=== PATIENT | male | born 1955 | race Caucasian/White ===

== ENCOUNTER 2020-06-14 16:47 | Emergency (ER) | payer MEDICARE, BC ==
[~2020-06-14] VITALS: Ht 190.5 cm; Wt 90.9 kg
[2020-06-14] MEDS ORDERED: cefTRIAXone FOR IV USE 1,000 MG in WATER (STERILE) FOR INJECTION 10 ML IV ONE (17:00)
[2020-06-14] MEDS ORDERED: NS IV 1000 ML 1,000 ML IV SCH (17:00)
[2020-06-14 17:23] LABS: HEMATOCRIT 38 % (40-54); HEMOGLOBIN 13.1 G/DL (13.3-17.7); MEAN CORPUSCULAR HEMOGLOBIN 31 PG (25-34); MEAN CORPUSCULAR HGB CONC 35 G/DL (32-36); MEAN CORPUSCULAR VOLUME 90 FL (80-99); MEAN PLATELET VOLUME 9.4 FL (7.4-10.4); NEUTROPHILS % (AUTO) 79 % (42-75); PLATELET COUNT 196 10^3/uL (130-400); WHITE BLOOD COUNT 5.7 10^3/uL (4.3-11.0)
[2020-06-14 17:24] LABS: BASOPHILS % (AUTO) 0 % (0-10); EOSINOPHILS # (AUTO) 0.2 10^3/uL (0.0-0.3); EOSINOPHILS % (AUTO) 4 % (0-10); LYMPHOCYTES # (AUTO) 0.5 X 10^3 (1.0-4.0); LYMPHOCYTES % (AUTO) 9 % (12-44); MONOCYTES # (AUTO) 0.5 X 10^3 (0.0-1.0); MONOCYTES % (AUTO) 9 % (0-12); NEUTROPHILS # (AUTO) 4.5 X 10^3 (1.8-7.8)
[2020-06-14 17:37] LABS: BILIRUBIN,TOTAL 0.3 MG/DL (0.1-1.0); BUN/CREATININE RATIO 15; CALCIUM 8.6 MG/DL (8.5-10.1); CARBON DIOXIDE 24 MMOL/L (21-32); CHLORIDE 102 MMOL/L (98-107); CREATININE SERUM 1.09 MG/DL (0.60-1.30); GFR ESTIMATED > 60; GLUCOSE 106 MG/DL (70-105); POTASSIUM 3.5 MMOL/L (3.6-5.0); SODIUM 137 MMOL/L (135-145)
[2020-06-14 17:38] LABS: ALANINE AMINOTRANSFERASE 27 U/L (0-55); ALBUMIN 4.1 GM/DL (3.2-4.5); ALKALINE PHOSPHATASE 77 U/L (40-136); TOTAL PROTEIN 6.2 GM/DL (6.4-8.2)
[2020-06-14 18:02] LABS: BILIRUBIN,URINE NEGATIVE (NEGATIVE); CLARITY,URINE BLOODY; COLOR,URINE RED; GLUCOSE, URINE (UA) NEGATIVE (NEGATIVE); KETONES,URINE NEGATIVE (NEGATIVE); LEUKOCYTE ESTERASE ,URINE 1+ (NEGATIVE); NITRITE,URINE NEGATIVE (NEGATIVE); PROTEIN,URINE 2+ (NEGATIVE); RBC,URINE >100 /HPF
[2020-06-14 18:03] LABS: BACTERIA,URINE NEGATIVE /HPF
[2020-06-14 18:05] VITALS: BP 130/66
--- NOTE | 2020-06-14 18:12 | ED General ---
General Chief Complaint: - Urinary Stated Complaint: SOA,COUGH,FEVER,PAINFUL URINATION Nursing Triage Note: Patient presents to the ED with c/o of fever, pain, frequency, and pain with urination. He states he had a TURP procedure done yesterday and had his catheter removed this morning around 10am. He reporrts he began running a fever this afternoon and called his urologist who told him to come to the ED for further evaluation. Nursing Sepsis Screen: Possible Severe Sepsis Risk History of Present Illness Date Seen by Provider: Jun 14, 2020 Time Seen by Provider: 17:30 Initial Comments Patient is a 64-year-old male who is 1 day post TURP who presents with dysuria and fever. Patient states he had procedure performed in the [place] at [facility] yesterday morning. Denies complications or significant pain following the procedure. He stayed locally at a hotel and had his catheter removed without incident earlier this morning. Upon returning from [place], the patient developed a fever and felt hot. His temperature in the emergency department is one hundred and two. He also reports dysuria but denies flank pain. Denies nausea vomiting sweats, chills, shaking chills, abdominal or pelvic pain. No rash. No other acute symptoms or complaints. Timing/Duration: 1-3 Hours Severity: Moderate Modifying Factors: improves with Other Associated Systoms: Weakness, Other Allergies and Home Medications Allergies Coded Allergies: Sulfa (Sulfonamide Antibiotics) (Verified Allergy, Unknown, 06/14/20) Patient Home Medication List Home Medication List Reviewed: Yes Review of Systems Review of Systems Constitutional: see HPI EENTM: see HPI Respiratory: see HPI Cardiovascular: see HPI Gastrointestinal: no symptoms reported Genitourinary: no symptoms reported Musculoskeletal: no symptoms reported Skin: no symptoms reported Psychiatric/Neurological: No Symptoms Reported Hematologic/Lymphatic: No Symptoms Reported Immunological/Allergic: no symptoms reported All Other Systems Reviewed Negative Unless Noted: Yes Past Nofbegz-Xmxzjn-Auingm Hx Past Med/Social Hx: Reviewed Nursing Past Med/Soc Hx Patient Social History Alcohol Use: Denies Use Smoking Status: Never a Smoker 2nd Hand Smoke Exposure: No Recent Infectious Disease Expo: No Recent Hopitalizations: Yes (Outpatient TURP 06/13/2020) Seasonal Allergies Seasonal Allergies: No Past Medical History Surgeries: Yes (TURP x 2, Varicocelectomy) Respiratory: No Cardiac: Yes (Borderline HTN) Neurological: No Genitourinary: Yes Benign Prostatic Hyperpl Gastrointestinal: No Musculoskeletal: No Endocrine: No HEENT: No Cancer: No Psychosocial: No Integumentary: No Blood Disorders: No Physical Exam Vital Signs Vital Signs - First Documented 06/14/20 16:57 Temp 39.0 Pulse 91 Resp 18 B/P (MAP) 161/68 (99) Pulse Ox 97 O2 Delivery Room Air Capillary Refill : Less Than 3 Seconds Height, Weight, BMI Height: '" Weight: lbs. oz. kg; 25.00 BMI Method: General Appearance: Anxious Eyes: Bilateral Eye Normal Inspection, Bilateral Eye PERRL, Bilateral Eye EOMI HEENT: PERRL/EOMI, Pharynx Normal, Moist Mucous Membranes Neck: Full Range of Motion, Non Tender, Supple Respiratory: Lungs Clear Cardiovascular: Regular Rate, Rhythm Gastrointestinal: Non Tender, Soft Back: No CVA Tenderness Neurologic/Psychiatric: Alert, Oriented x3 Skin: Other (Flushed) Focused Exam Sepsis Stage: Sepsis Possible Source: Genitouriary Lactate Level 06/14/20 17:05: Lactic Acid Level 1.60 Time of Focused Exam: 17:00 Respiratory: Lungs Clear, Normal Breath Sounds Cardiovascular: Regular Rate, Rhythm Capillary Refill: Less Than 3 Seconds Skin: normal color, warm/dry, other (Flushed) Lactic Acid Level Laboratory Tests Test 06/14/20 17:05 Lactic Acid Level 1.60 MMOL/L (0.50-2.00) Within 3hrs of presentation: Admin fluids, Admin ABX, Blood cultures prior to ABX's, D/C Instructions given to patient, Focus exam, Lactate level Progress/Results/Core Measures Suspected Sepsis Recent Fever Within 48 Hours: Yes Infection Criteria Present: Suspected New Infection New/Unexplained Altered Menta: No Sepsis Screen: Possible Severe Sepsis Risk SIRS Temperature: Pulse: 67 Respiratory Rate: 18 Laboratory Tests 06/14/20 17:05: White Blood Count 5.7 Blood Pressure 130 /66 Mean: 99 06/14/20 17:05: Lactic Acid Level 1.60 Laboratory Tests 06/14/20 17:05: Creatinine 1.09, Platelet Count 196, Total Bilirubin 0.3 Results/Orders Lab Results Laboratory Tests Test 06/14/20 16:58 06/14/20 17:05 Range/Units Urine Color RED H Urine Clarity BLOODY H Urine pH 6.0 5-9 Urine Specific [place] 1.025 H 1.016-1.022 Urine Protein 2+ H NEGATIVE Urine Glucose (UA) NEGATIVE NEGATIVE Urine Ketones NEGATIVE NEGATIVE Urine Nitrite NEGATIVE NEGATIVE Urine Bilirubin NEGATIVE NEGATIVE Urine Urobilinogen 0.2 < = 1.0 MG/DL Urine Leukocyte Esterase 1+ H NEGATIVE Urine RBC (Auto) 3+ H NEGATIVE Urine RBC >100 H /HPF Urine WBC 2-5 /HPF Urine Squamous Epithelial Cells NONE /HPF Urine Crystals NONE /LPF Urine Bacteria NEGATIVE /HPF Urine Casts NONE /LPF Urine Mucus SMALL H /LPF Urine Culture Indicated YES White Blood Count 5.7 4.3-11.0 10^3/uL Red Blood Count 4.18 L 4.35-5.85 10^6/uL Hemoglobin 13.1 L 13.3-17.7 G/DL Hematocrit 38 L 40-54 % Mean Corpuscular Volume 90 80-99 FL Mean Corpuscular Hemoglobin 31 25-34 PG Mean Corpuscular Hemoglobin Concent 35 32-36 G/DL Red Cell Distribution Width 14.1 10.0-14.5 % Platelet Count 196 130-400 10^3/uL Mean Platelet Volume 9.4 7.4-10.4 FL Immature Granulocyte % (Auto) 0 % Neutrophils (%) (Auto) 79 H 42-75 % Lymphocytes (%) (Auto) 9 L 12-44 % Monocytes (%) (Auto) 9 0-12 % Eosinophils (%) (Auto) 4 0-10 % Basophils (%) (Auto) 0 0-10 % Neutrophils # (Auto) 4.5 1.8-7.8 X 10^3 Lymphocytes # (Auto) 0.5 L 1.0-4.0 X 10^3 Monocytes # (Auto) 0.5 0.0-1.0 X 10^3 Eosinophils # (Auto) 0.2 0.0-0.3 10^3/uL Basophils # (Auto) 0.0 0.0-0.1 10^3/uL Immature Granulocyte # (Auto) 0.0 0.0-0.1 10^3/uL Sodium Level 137 135-145 MMOL/L Potassium Level 3.5 L 3.6-5.0 MMOL/L Chloride Level 102 98-107 MMOL/L Carbon Dioxide Level 24 21-32 MMOL/L Anion Gap 11 5-14 MMOL/L Blood Urea Nitrogen 16 7-18 MG/DL Creatinine 1.09 0.60-1.30 MG/DL Estimat Glomerular Filtration Rate > 60 BUN/Creatinine Ratio 15 Glucose Level 106 H 70-105 MG/DL Lactic Acid Level 1.60 0.50-2.00 MMOL/L Calcium Level 8.6 8.5-10.1 MG/DL Corrected Calcium 8.5 8.5-10.1 MG/DL Total Bilirubin 0.3 0.1-1.0 MG/DL Aspartate Amino Transf (AST/SGOT) 17 5-34 U/L Alanine Aminotransferase (ALT/SGPT) 27 0-55 U/L Alkaline Phosphatase 77 40-136 U/L C-Reactive Protein 0.70 H <0.50 MG/DL Total Protein 6.2 L 6.4-8.2 GM/DL Albumin 4.1 3.2-4.5 GM/DL My Orders Orders - SRIKANTH CAMPBELL DO Cbc With Automated Diff (06/14/20 16:58) Comprehensive Metabolic Panel (06/14/20 16:58) Crp Fs (06/14/20 16:58) Lactic Acid Analyzer (06/14/20 16:58) Blood Culture (06/14/20 16:58) Ns Iv 1000 Ml (Sodium Chloride 0.9%) (06/14/20 17:00) Ceftriaxone For Iv Use (Rocephin For I (06/14/20 17:00) Blood Culture (06/14/20 17:10) Ua Culture If Indicated (06/14/20 17:58) Urine Culture (06/14/20 16:58) Medications Given in ED Current Medications Medications Dose Ordered Sig/Vania Route Start Time Stop Time Status Last Admin Dose Admin Ceftriaxone Sodium 1000 mg/ Sterile Water 10 ml @ 200 mls/hr ONCE ONCE IV 06/14/20 17:00 06/14/20 17:02 DC 06/14/20 17:13 200 MLS/HR Vital Signs/I&O 06/14/20 16:57 Temp 39.0 Pulse 91 Resp 18 B/P (MAP) 161/68 (99) Pulse Ox 97 O2 Delivery Room Air Capillary Refill : Less Than 3 Seconds Blood Pressure Mean: 99 Departure Communication (Admissions) Patient bacteremia likely secondary to TURP. Urine culture obtained. IV fluids and antibiotics given. Patient defervesced and overall symptoms are improved. Patient's labs are reassuring. He does not currently have any pain other than mild dysuria. We will continue therapeutic and supportive care with urology follow-up. Return precautions reviewed. Patient verbalizes understanding and agreement discharge instructions prior to departure. Impression Primary Impression: Bacteremia Additional Impression: Urinary tract infection Disposition: HOME, SELF-CARE Condition: Stable Departure-Patient Inst. Decision time for Depature: 18:19 Referrals: GISELLE LE APRN (PCP/Family) Primary Care Physician Patient Instructions: Urinary Tract Infection, Adult (DC) Add. Discharge Instructions: Please increase fluids and take newly prescribed antibiotics and pain medications as directed. Follow-up with your PCP and neurologist for reevaluation in 2 to 3 days. Return to the ED if new or worsening symptoms. All discharge instructions reviewed with patient and/or family. Voiced understanding. Scripts Cefdinir (Cefdinir) 300 Mg Capsule 300 MG PO BID, #14 CAP 0 Refills Prov: SRIKANTH CAMPBELL DO 06/14/20 Phenazopyridine HCl (Pyridium) 100 Mg Tablet 100 MG PO Q12H, #6 TAB Prov: SRIKANTH CAMPBELL DO 06/14/20 SRIKANTH CAMPBELL DO Jun 14, 2020 18:12
[2020-06-14] MEDS ORDERED: PHEN-639 PO (18:20)
[2020-06-14] MEDS ORDERED: CEFD300C3 PO (18:20)
== END 2020-06-14 18:31 | disposition home or self-care (01) ==
LOC: ER FS 16:49
DX: R78.81 Bacteremia (principal); N39.0 Urinary tract infection, site not specified; Z88.2 Allergy status to sulfonamides
CPT/HCPCS: 36415; 80053; 81000; 83605; 85025; 86141; 87040; 87088

== ENCOUNTER 2021-06-01 16:02 | Emergency (ER) | payer MEDICARE, BC ==
[~2021-06-01] VITALS: Ht 188 cm; Wt 90.7 kg
[~2021-06-01 16:02] MED LIST: CEFD300C3 PO; PHEN-639 PO
--- NOTE | 2021-06-01 16:11 | ED General ---
General Stated Complaint: LOC, DIARRHEA History of Present Illness Date Seen by Provider: Jun 01, 2021 Time Seen by Provider: 16:06 Initial Comments 65-year-old male presents following a episode in which he fainted. Patient reports that he had stomach discomfort. He went to the restroom where he had quite a few bowel movements that turned to diarrhea. That he had a episode of fainting when he was on the toilet. When he comes in now he just states he "feels lousy" but the stomach discomfort is improved he still feels little bit mildly nauseated. He does not report any recent illnesses, no fevers, chills, chest pain. Maybe little mild shortness of breath. Allergies and Home Medications Allergies Coded Allergies: Sulfa (Sulfonamide Antibiotics) (Verified Allergy, Unknown, 06/14/20) Patient Home Medication List Home Medication List Reviewed: Yes Cefdinir (Cefdinir) 300 Mg Capsule, 300 MG PO BID Prescribed by: SRIKANTH CAMPBELL on 06/14/201819 Phenazopyridine HCl (Pyridium) 100 Mg Tablet, 100 MG PO Q12H Prescribed by: SRIKANTH CAMPBELL on 06/14/201819 Review of Systems Review of Systems Constitutional: No chills, No fever; malaise EENTM: see HPI Respiratory: see HPI; No cough Cardiovascular: No chest pain, No palpitations Gastrointestinal: abdominal pain, diarrhea, nausea; No vomiting Genitourinary: no symptoms reported Musculoskeletal: no symptoms reported Skin: no symptoms reported Psychiatric/Neurological: No Symptoms Reported Hematologic/Lymphatic: No Symptoms Reported Past Kkpeybz-Bhyuza-Lvcurh Hx Seasonal Allergies Seasonal Allergies: No Past Medical History Surgeries: Yes (TURP x 2, Varicocelectomy) Respiratory: No Cardiac: Yes (Borderline HTN) Neurological: No Genitourinary: Yes Benign Prostatic Hyperpl Gastrointestinal: No Musculoskeletal: No Endocrine: No HEENT: No Cancer: No Psychosocial: No Integumentary: No Blood Disorders: No Physical Exam Vital Signs Vital Signs - First Documented 06/01/21 06/01/21 16:02 18:48 Temp 36.1 Pulse 57 Resp 16 B/P (MAP) 124/67 (86) Pulse Ox 98 O2 Delivery Room Air Capillary Refill : Height, Weight, BMI Height: '" Weight: lbs. oz. kg; 25.00 BMI Method: General Appearance: No Apparent Distress, WD/WN Respiratory: Lungs Clear, Normal Breath Sounds Cardiovascular: Regular Rate, Rhythm, No Edema Gastrointestinal: Soft; No Distended, No Guarding; Tenderness (Minimal diffuse) Extremity: Normal Capillary Refill, Normal Inspection, Normal Range of Motion Neurologic/Psychiatric: Alert, Oriented x3 Skin: Normal Color, Warm/Dry Progress/Results/Core Measures Suspected Sepsis SIRS Temperature: Pulse: Respiratory Rate: Laboratory Tests 06/01/21 16:12: White Blood Count 5.5 Blood Pressure / Mean: Laboratory Tests 06/01/21 16:12: Creatinine 0.96, Platelet Count 242, Total Bilirubin 0.3 Results/Orders Lab Results Laboratory Tests Test 06/01/21 16:12 06/01/21 17:13 Range/Units White Blood Count 5.5 4.3-11.0 10^3/uL Red Blood Count 4.55 4.30-5.52 10^6/uL Hemoglobin 14.5 13.3-17.7 g/dL Hematocrit 40 40-54 % Mean Corpuscular Volume 88 80-99 fL Mean Corpuscular Hemoglobin 32 25-34 pg Mean Corpuscular Hemoglobin Concent 36 32-36 g/dL Red Cell Distribution Width 13.1 10.0-14.5 % Platelet Count 242 130-400 10^3/uL Mean Platelet Volume 9.2 9.0-12.2 fL Immature Granulocyte % (Auto) 0 % Neutrophils (%) (Auto) 35 L 42-75 % Lymphocytes (%) (Auto) 55 H 12-44 % Monocytes (%) (Auto) 8 0-12 % Eosinophils (%) (Auto) 2 0-10 % Basophils (%) (Auto) 1 0-10 % Neutrophils # (Auto) 1.9 1.8-7.8 10^3/uL Lymphocytes # (Auto) 3.0 1.0-4.0 10^3/uL Monocytes # (Auto) 0.4 0.0-1.0 10^3/uL Eosinophils # (Auto) 0.1 0.0-0.3 10^3/uL Basophils # (Auto) 0.0 0.0-0.1 10^3/uL Immature Granulocyte # (Auto) 0.0 0.0-0.1 10^3/uL Sodium Level 142 135-145 MMOL/L Potassium Level 3.7 3.6-5.0 MMOL/L Chloride Level 104 98-107 MMOL/L Carbon Dioxide Level 24 21-32 MMOL/L Anion Gap 14 5-14 MMOL/L Blood Urea Nitrogen 15 7-18 MG/DL Creatinine 0.96 0.60-1.30 MG/DL Estimat Glomerular Filtration Rate 87 BUN/Creatinine Ratio 16 Glucose Level 112 H 70-105 MG/DL Calcium Level 9.6 8.5-10.1 MG/DL Corrected Calcium 8.5-10.1 MG/DL Total Bilirubin 0.3 0.1-1.0 MG/DL Aspartate Amino Transf (AST/SGOT) 21 5-34 U/L Alanine Aminotransferase (ALT/SGPT) 29 0-55 U/L Alkaline Phosphatase 80 40-136 U/L C-Reactive Protein < 0.30 <0.50 MG/DL Total Protein 6.8 6.4-8.2 GM/DL Albumin 4.6 H 3.2-4.5 GM/DL Lipase 28 8-78 U/L Urine Color YELLOW Urine Clarity CLOUDY Urine pH 8.0 5-9 Urine Specific [place] 1.015 L 1.016-1.022 Urine Protein TRACE H NEGATIVE Urine Glucose (UA) NEGATIVE NEGATIVE Urine Ketones NEGATIVE NEGATIVE Urine Nitrite NEGATIVE NEGATIVE Urine Bilirubin NEGATIVE NEGATIVE Urine Urobilinogen 0.2 < = 1.0 MG/DL Urine Leukocyte Esterase NEGATIVE NEGATIVE Urine RBC (Auto) NEGATIVE NEGATIVE Urine RBC NONE /HPF Urine WBC NONE /HPF Urine Crystals PRESENT H /LPF Urine Amorphous Sediment LARGE NAYELY PHOSPHATE H /LPF Urine Bacteria FEW H /HPF Urine Casts PRESENT /LPF Urine Hyaline Casts 5-10 H /LPF Urine Mucus MODERATE H /LPF Urine Culture Indicated NO My Orders Orders - HOLT,DARLENE L DO Cbc With Automated Diff (06/01/21 16:12) Comprehensive Metabolic Panel (06/01/21 16:12) Lipase (06/01/21 16:12) Ua Culture If Indicated (06/01/21 16:12) Crp Fs (06/01/21 16:12) Ondansetron Injection (Zofran Injectio (06/01/21 16:15) Lactated Ringers (Lr 1000 Ml Iv Solution (06/01/21 16:12) Abdomen Flat & Upright/Decub (06/01/21 16:43) Ekg Tracing (06/01/21 17:22) Ct Abdomen/Pelvis W (06/01/21 17:25) Iohexol Injection (Omnipaque 350 Mg/Ml 1 (06/01/21 17:30) Received Contrast (Hold Metformin- Contr (06/01/21 17:30) Sodium Chloride Flush (Catheter Flush Sy (06/01/21 17:30) Ns (Ivpb) (Sodium Chloride 0.9% Ivpb Bag (06/01/21 17:30) Medications Given in ED Current Medications Medications Dose Ordered Sig/Vania Route Start Time Stop Time Status Last Admin Dose Admin Iohexol 100 ml ONCE ONCE IV 06/01/21 17:30 06/01/21 18:47 DC 06/01/21 17:44 100 ML Ondansetron HCl 4 mg ONCE ONCE IVP 06/01/21 16:15 06/01/21 16:16 DC 06/01/21 16:24 4 MG Sodium Chloride 10 ml NEEDED PRN IV 06/01/21 17:30 06/01/21 18:47 DC 06/01/21 17:44 10 ML Sodium Chloride 100 ml ONCE ONCE IV 06/01/21 17:30 06/01/21 18:47 DC 06/01/21 17:44 100 ML Vital Signs/I&O 06/01/21 06/01/21 16:02 18:48 Temp 36.1 36.1 Pulse 57 57 Resp 16 16 B/P (MAP) 124/67 (86) 154/73 Pulse Ox 98 O2 Delivery Room Air Room Air Capillary Refill : Progress Note : Progress Note Patient with negative evaluation including CT abdomen pelvis, labs and x-ray. Patient did have multiple diarrheal stools while he was here in the ER. Patient has sinus bradycardia. I discussed with him that they likely had a vasovagal event due to the discomfort in his stomach. He has nonspecific diarrhea but likely infectious. Patient should follow-up with a primary care provider in a couple days for recheck. ECG Initial ECG Impression Date: Jun 01, 2021 Initial ECG Impression Time: 17:31 Initial ECG Rate: 49 Initial ECG Rhythm: S.Jair Initial ECG Intervals: Normal Initial ECG Impression: Normal Diagnostic Imaging Diagonstic Imaging: Xray Plain Films/CT/US/NM/MRI: abdomen Comments ate of Exam:06/01/21 ABDOMEN FLAT & UPRIGHT/DECUB EXAMINATION: Three views of the abdomen. INDICATION: Diarrhea. Syncopal episode. COMPARISON: No comparison is available. FINDINGS: The lung bases demonstrate no findings of consolidation or large effusion. The bowel gas pattern is nonobstructed. There are no air-fluid levels on the upright views. There are no findings of free air. There are no unexpected abdominal calcifications. There is no acute osseous abnormality. IMPRESSION: Nonobstructive bowel gas pattern without evidence of air-fluid levels or free air. Comments CT ABDOMEN/PELVIS W PROCEDURE: CT abdomen and pelvis with contrast. TECHNIQUE: Multiple contiguous axial images were obtained through the abdomen and pelvis after administration of intravenous contrast. Auto Exposure Controls were utilized during the CT exam to meet ALARA standards for radiation dose reduction. All CT scans use one or more of the following dose optimizing techniques: automated exposure control, MA and/or KvP adjustment based on patient size and exam type or iterative reconstruction. INDICATION: Abdominal pain and diarrhea. Syncope. COMPARISON: Correlation made with KUB from earlier the same day. FINDINGS: The lung bases demonstrate no findings of pneumonia or edema. There is no effusion or pericardial collection. The liver demonstrates no focal intrahepatic abnormality. The gallbladder is nondistended without radiodense gallstones. Portal veins appear patent. The pancreas demonstrates no focal abnormality or ductal dilatation. The spleen is normal in size. There is no adrenal mass. Kidneys enhance normally and are nonobstructed. There is a 4 mm nonobstructing calculus within the lower calyces of the left kidney. Stomach is nondistended. There are no findings of abnormal small or large bowel dilation to suggest bowel obstruction. The colon is decompressed. There is no significant pericolonic fat stranding. There are few sigmoid diverticula. There is no focal inflammation evident within the right lower quadrant. The urinary bladder is nondistended. There is no pelvic free fluid. There are no findings of free air, abscess or adenopathy. There is mild atherosclerotic disease within the aorta. Aorta is normal in caliber. There is a fat-containing left inguinal hernia. There is a small periumbilical hernia. There are mild degenerative changes present throughout the thoracic and lumbar spine without acute or suspicious osseous abnormality. IMPRESSION: 1. No CT findings of an acute inflammatory or obstructive process within the abdomen or pelvis. 2. No findings of bowel obstruction. There are a few diverticula. There is no diverticulitis. There is no free fluid or abscess. 3. Nonobstructing left renal calculus. 4. No findings of adenopathy. 5. Left inguinal and periumbilical fat-containing hernias. Departure Impression Primary Impression: Diarrhea Qualified Codes: R19.7 - Diarrhea, unspecified Additional Impressions: Sinus bradycardia Vasovagal syncope Disposition: HOME, SELF-CARE Condition: Stable Departure-Patient Inst. Referrals: GISELLE LE SPD MANAGER (PCP/Family) Primary Care Physician Patient Instructions: Diarrhea, Adult ED, Bradycardia, Vasovagal Response (DC) Add. Discharge Instructions: Drink plenty of fluids Follow-up with your primary care provider in the middle of next week for recheck of your symptoms DARLENE HOLT DO Jun 01, 2021 16:11
[2021-06-01] MEDS ORDERED: LACTATED RINGERS 1,000 ML IV STA (16:12)
[2021-06-01] MEDS ORDERED: ONDANSETRON 4 MG/2 ML (SDV) Z0FRAN IVP ONE (16:15)
[2021-06-01 16:17] LABS: BASOPHILS % (AUTO) 1 % (0-10); EOSINOPHILS # (AUTO) 0.1 10^3/uL (0.0-0.3); EOSINOPHILS % (AUTO) 2 % (0-10); HEMATOCRIT 40 % (40-54); HEMOGLOBIN 14.5 g/dL (13.3-17.7); LYMPHOCYTES % (AUTO) 55 % (12-44); MEAN CORPUSCULAR HEMOGLOBIN 32 pg (25-34); MEAN CORPUSCULAR HGB CONC 36 g/dL (32-36); MEAN CORPUSCULAR VOLUME 88 fL (80-99); MEAN PLATELET VOLUME 9.2 fL (9.0-12.2); MONOCYTES # (AUTO) 0.4 10^3/uL (0.0-1.0); MONOCYTES % (AUTO) 8 % (0-12); NEUTROPHILS # (AUTO) 1.9 10^3/uL (1.8-7.8); NEUTROPHILS % (AUTO) 35 % (42-75); PLATELET COUNT 242 10^3/uL (130-400); WHITE BLOOD COUNT 5.5 10^3/uL (4.3-11.0)
[2021-06-01 16:37] LABS: ALANINE AMINOTRANSFERASE 29 U/L (0-55); ALBUMIN 4.6 GM/DL (3.2-4.5); ALKALINE PHOSPHATASE 80 U/L (40-136); BILIRUBIN,TOTAL 0.3 MG/DL (0.1-1.0); BUN/CREATININE RATIO 16; CALCIUM 9.6 MG/DL (8.5-10.1); CARBON DIOXIDE 24 MMOL/L (21-32); CHLORIDE 104 MMOL/L (98-107); CREATININE SERUM 0.96 MG/DL (0.60-1.30); GFR ESTIMATED 87; GLUCOSE 112 MG/DL (70-105); LIPASE 28 U/L (8-78); POTASSIUM 3.7 MMOL/L (3.6-5.0); SODIUM 142 MMOL/L (135-145); TOTAL PROTEIN 6.8 GM/DL (6.4-8.2)
--- NOTE | 2021-06-01 17:07 | Diagnostic Imaging Report ---
EXAMINATION: Three views of the abdomen. INDICATION: Diarrhea. Syncopal episode. COMPARISON: No comparison is available. FINDINGS: The lung bases demonstrate no findings of consolidation or large effusion. The bowel gas pattern is nonobstructed. There are no air-fluid levels on the upright views. There are no findings of free air. There are no unexpected abdominal calcifications. There is no acute osseous abnormality. IMPRESSION: Nonobstructive bowel gas pattern without evidence of air-fluid levels or free air. Dictated by: Dictated on workstation # [id number]
[2021-06-01 17:18] LABS: BILIRUBIN,URINE NEGATIVE (NEGATIVE); COLOR,URINE YELLOW; GLUCOSE, URINE (UA) NEGATIVE (NEGATIVE); KETONES,URINE NEGATIVE (NEGATIVE); LEUKOCYTE ESTERASE ,URINE NEGATIVE (NEGATIVE); NITRITE,URINE NEGATIVE (NEGATIVE); PROTEIN,URINE TRACE (NEGATIVE)
[2021-06-01 17:21] LABS: AMORPHOUS SEDIMENT,UR LARGE AMOR PHOSPHATE /LPF; BACTERIA,URINE FEW /HPF; CLARITY,URINE CLOUDY
[2021-06-01] MEDS ORDERED: NS 100 ML (IVPB) BAG IV ONE (17:30)
[2021-06-01] MEDS ORDERED: IOHEXOL 350 MG/ML 150 ML (OMNIPAQUE 350) VIAL IV ONE (17:30)
[2021-06-01] MEDS ORDERED: CATHETER FLUSH 10 ML SYR IV PRN (17:30)
[2021-06-01] MEDS ORDERED: HOLD METFORMIN - RECEIVED CONTRAST 20 ML VIAL IV SCH (17:30)
--- NOTE | 2021-06-01 18:31 | Diagnostic Imaging Report ---
PROCEDURE: CT abdomen and pelvis with contrast. TECHNIQUE: Multiple contiguous axial images were obtained through the abdomen and pelvis after administration of intravenous contrast. Auto Exposure Controls were utilized during the CT exam to meet ALARA standards for radiation dose reduction. All CT scans use one or more of the following dose optimizing techniques: automated exposure control, MA and/or KvP adjustment based on patient size and exam type or iterative reconstruction. INDICATION: Abdominal pain and diarrhea. Syncope. COMPARISON: Correlation made with KUB from earlier the same day. FINDINGS: The lung bases demonstrate no findings of pneumonia or edema. There is no effusion or pericardial collection. The liver demonstrates no focal intrahepatic abnormality. The gallbladder is nondistended without radiodense gallstones. Portal veins appear patent. The pancreas demonstrates no focal abnormality or ductal dilatation. The spleen is normal in size. There is no adrenal mass. Kidneys enhance normally and are nonobstructed. There is a 4 mm nonobstructing calculus within the lower calyces of the left kidney. Stomach is nondistended. There are no findings of abnormal small or large bowel dilation to suggest bowel obstruction. The colon is decompressed. There is no significant pericolonic fat stranding. There are few sigmoid diverticula. There is no focal inflammation evident within the right lower quadrant. The urinary bladder is nondistended. There is no pelvic free fluid. There are no findings of free air, abscess or adenopathy. There is mild atherosclerotic disease within the aorta. Aorta is normal in caliber. There is a fat-containing left inguinal hernia. There is a small periumbilical hernia. There are mild degenerative changes present throughout the thoracic and lumbar spine without acute or suspicious osseous abnormality. IMPRESSION: 1. No CT findings of an acute inflammatory or obstructive process within the abdomen or pelvis. 2. No findings of bowel obstruction. There are a few diverticula. There is no diverticulitis. There is no free fluid or abscess. 3. Nonobstructing left renal calculus. 4. No findings of adenopathy. 5. Left inguinal and periumbilical fat-containing hernias. Dictated by: Dictated on workstation # [id number]
[2021-06-01 18:48] VITALS: BP 154/73
== END 2021-06-01 18:47 | disposition home or self-care (01) ==
LOC: EDUNIT# 16:02 → ER FS 16:04
DX: R55 Syncope and collapse (principal); R00.1 Bradycardia, unspecified; R19.7 Diarrhea, unspecified
CPT/HCPCS: 36415; 74019; 74177; 80053; 81000; 83690; 85025; 86141; 93005; 96361; 96374; Q9967

== ENCOUNTER → 2022-06-20 | Outpatient (CLI) | payer MEDICARE, BC ==
--- NOTE | 2022-06-20 17:03 | Diagnostic Imaging Report ---
EXAMINATION: Abdomen 1 view. HISTORY: [address] COMPARISON: 06/01/2021. FINDINGS: There is a moderate amount of gas and stool throughout the colon. Nonobstructive bowel gas pattern. There is a radiopacity overlying the left kidney measuring 0.9 cm. The lung bases are clear. The osseous structures are intact. IMPRESSION: A 0.9 cm radiopacity overlying the left kidney which may represent a renal calculus. Dictated by: Dictated on workstation # [id number]
== END ==
LOC: RAD FS 15:09
PROVIDERS: ATTEND Specialist
DX: N20.0 Calculus of kidney (principal)
CPT/HCPCS: 74018

== ENCOUNTER → 2023-01-27 | Outpatient (CLI) | payer MEDICARE, BC | LOC: LAB FS 09:46 | PROVIDERS: ATTEND Registered Nurse Emergency | DX: Z11.59 Encounter for screening for other viral diseases (principal); R10.30 Lower abdominal pain, unspecified; R53.83 Other fatigue; R19.7 Diarrhea, unspecified; R11.0 Nausea | CPT/HCPCS: 87015; 87045; 87046; 87324; 87328; 87329; 87449; 87899 ==

== ENCOUNTER → 2023-02-04 | Outpatient (CLI) | payer MEDICARE, BC ==
--- NOTE | 2023-02-04 13:44 | Diagnostic Imaging Report ---
INDICATION: Cervicalgia. Bilateral shoulder pain. COMPARISON: None. TECHNIQUE: Frontal, lateral, and open-mouth radiographic views of the cervical spine were obtained. FINDINGS: The cervical spine is seen down to the C7-T1 level on the lateral view. Evaluation of static alignment shows slight grade 1 retrolisthesis at the C5-C6 level and slight grade 1 anterolisthesis at C7-T1. There is no evidence of jumped facets. Vertebral body heights are maintained. There is no acute fracture. There are moderate degenerative changes, greatest at C5-C6 where there is intervertebral disc height loss with fairly prominent anterior and posterior endplate osteophyte formations. There is also multilevel facet arthropathy. IMPRESSION: 1. No acute fracture or dislocation of the cervical spine. 2. Moderate degenerative changes, greatest at C5-C6. Dictated by: Dictated on workstation # [id number]
== END ==
LOC: RAD FS 11:00
PROVIDERS: ATTEND Registered Nurse Emergency
DX: M47.812 Spondylosis without myelopathy or radiculopathy, cervical region (principal); M25.511 Pain in right shoulder; M25.512 Pain in left shoulder
CPT/HCPCS: 72040

== ENCOUNTER → 2023-02-07 | Outpatient (CLI) | payer MEDICARE, BC ==
--- NOTE | 2023-02-07 10:03 | Diagnostic Imaging Report ---
EXAM: SHOULDER 2 VIEW LEFT INDICATION: Left shoulder pain. COMPARISON: None. FINDINGS: No fracture or malalignment. Soft tissue shadows are unremarkable. IMPRESSION: No acute radiographic findings in the left shoulder. Dictated by: Dictated on workstation # [id number]
== END ==
LOC: RAD FS 08:21
PROVIDERS: ATTEND Nurse Practitioner Family
DX: M25.512 Pain in left shoulder (principal)
CPT/HCPCS: 73030